=== PATIENT | male | born 1965 | race African-American/Black ===

== ENCOUNTER 2022-09-16 05:22 | Emergency (ER) | payer SELFPAY ==
[2022-09-16 05:53] VITALS: BMI 26.6
[2022-09-16] MEDS ORDERED: ACETAMINOPHEN 325 MG TABLET (FP) PO ONE (06:40)
[2022-09-16] MEDS ORDERED: LIDOCAINE 5% TOPICAL PATCH TP ONE (06:40)
[2022-09-16] MEDS ORDERED: ACETAMINOPHEN 325 MG TABLET (FP) ONE (06:49)
[2022-09-16] MEDS ORDERED: LIDOCAINE 5% TOPICAL PATCH ONE ×2 (06:50→08:41)
[2022-09-16 08:40] VITALS: RESP 18; TEMP 98.1
[2022-09-16 13:32] LABS: INR 1.12 (0.83-1.09)
[2022-09-16 13:33] LABS: BASO % 0.9 % (0-2.0); EOS % 2.7 % (0-4.5); HEMATOCRIT 36.3 % (35.4-49); LYMPH % 14.4 % (8-40); MCH 27.5 pg (25.7-33.7); MEAN CELL VOLUME 83.3 fl (80-96); MEAN PLT VOLUME 8.7 fl (7.5-11.1); MONO % 4.2 % (3.8-10.2); NEUT % 77.8 % (42.8-82.8); PLATELET COUNT 356 10^3/uL (134-434); RBC 4.36 M/mm3 (4.00-5.60); RDW 14.3 % (11.9-15.9); WHITE BLOOD COUNT 10.5 K/mm3 (4.0-10.0)
[2022-09-16 13:34] LABS: ACTIVATED PTT 28.5 SECONDS (25.2-36.5)
[2022-09-16 13:36] LABS: CALCIUM 9.1 mg/dL (8.5-10.1)
[2022-09-16 13:37] LABS: ALBUMIN 3.6 g/dl (3.4-5.0); BLOOD UREA NITROGEN 16.1 mg/dL (7-18)
[2022-09-16 13:41] LABS: BILIRUBIN,TOTAL 0.4 mg/dL (0.2-1)
[2022-09-16 13:58] LABS: ANISOCYTOSIS 0; HELMET CELLS 0; HOWELL-JOLLY BODIES 0; MACROCYTOSIS 0; OVALOCYTE 0; ROULEAU 0; SICKELED CELLS 0; TARGET CELLS 0; TEAR DROP CELLS 0; TOXIC GRANULATION 0
[2022-09-16 14:32] VITALS: BP 147/80; PULSE 72
[2022-09-16] MEDS ORDERED: LIDOCAINE PATCH REMOVAL MC ONE (22:00)
== END 2022-09-16 15:00 | disposition home or self-care (01) ==
LOC: JER 05:22
DX: M54.50 Low back pain, unspecified (principal)
CPT/HCPCS: 36415; 72100-TC-FY; 80053; 83880; 84484; 85025; 85610; 85730; 99284-25

== ENCOUNTER 2022-12-19 07:33 | Inpatient (IN) | payer OTHER ==
[2022-12-19] MEDS ORDERED: SODIUM CHLORIDE 1,000 ML IV STA (08:21)
[2022-12-19] MEDS ORDERED: ACETAMINOPHEN 1000 MG/100 ML BAG IVPB ONE ×2 (08:51→18:36)
[2022-12-19] MEDS ORDERED: ACETAMINOPHEN INJECTION 100 ML IVPB ONE ×2 (08:57→19:39)
[2022-12-19 09:56] LABS: HEMATOCRIT 41.3 % (35.4-49); HEMOGLOBIN 13.4 GM/dL (11.7-16.9); MCH 27.4 pg (25.7-33.7); MCHC 32.5 g/dl (32.0-35.9); MEAN CELL VOLUME 84.2 fl (80-96); MEAN PLT VOLUME 8.1 fl (7.5-11.1); PLATELET COUNT 222 10^3/uL (134-434); RDW 14.6 % (11.9-15.9); WHITE BLOOD COUNT 6.2 K/mm3 (4.0-10.0)
[2022-12-19] MEDS ORDERED: ONDANSETRON 4 MG/2 ML VIAL IVPUSH ONE (10:07)
[2022-12-19] MEDS ORDERED: morphine CARPU-JECT 4 MG/1 ML DISP.SYRIN IVPUSH ONE (10:07)
[2022-12-19] MEDS ORDERED: ONDANSETRON 4 MG/2 ML VIAL ONE (10:14)
[2022-12-19] MEDS ORDERED: morphine SULFATE 4 MG/ML VIAL ONE (10:14)
[2022-12-19 10:15] LABS: POTASSIUM 3.8 mmol/L (3.5-5.1)
[2022-12-19 10:18] LABS: CALCIUM 9.5 mg/dL (8.5-10.1)
[2022-12-19 10:19] LABS: BLOOD UREA NITROGEN 14.6 mg/dL (7-18)
[2022-12-19 10:22] LABS: CREATININE 0.9 mg/dL (0.55-1.3)
[2022-12-19 10:23] LABS: BILIRUBIN,TOTAL 1.3 mg/dL (0.2-1); TOT PROT 6.9 g/dl (6.4-8.2)
[2022-12-19 10:26] LABS: N-TERMINAL BNP 78.9 pg/ml (5-125)
[2022-12-19] MEDS ORDERED: METOCLOPRAMIDE HCL INJECTION 10 MG/2 ML VIAL IVPUSH ONE (10:41)
[2022-12-19] MEDS ORDERED: METOCLOPRAMIDE HCL INJECTION 10 MG/2 ML VIAL ONE (10:47)
[2022-12-19] MEDS ORDERED: KETAMINE HCL 200 MG/20 ML VIAL IVPUSH ONE (15:02)
[2022-12-19] MEDS ORDERED: HALOPERIDOL LACTATE 5 MG/ML IM ONE ×2 (15:28→15:29)
[2022-12-19] MEDS ORDERED: LORazepam 2 MG/ML SDV VIAL IM ONE (15:28)
[2022-12-19] MEDS ORDERED: MIDAZOLAM HCL 5 MG/1 ML Single Dose Vial ONE ×2 (16:14→17:09)
[2022-12-19] MEDS ORDERED: MIDAZOLAM HCL 2 MG/2 ML SINGLE DOSE VIAL IM ONE (16:28)
[2022-12-19] MEDS ORDERED: MIDAZOLAM HCL 5 MG/1 ML Single Dose Vial IVPUSH ONE ×2 (17:13→17:15)
[2022-12-19 17:46] LABS: VENOUS BASE EXCESS -1.6 mmol/L (-2-2); VENOUS O2 SATURATION 81.3 % (70-80); VENOUS PCO2 36.1 mmHg (38-52); VENOUS PH 7.412 (7.310-7.410)
[2022-12-19] MEDS ORDERED: MIDAZOLAM HCL 2 MG/2 ML SINGLE DOSE VIAL ONE (17:52)
[2022-12-19] MEDS ORDERED: MIDAZOLAM HCL 2 MG/2 ML SINGLE DOSE VIAL IVPUSH ONE (18:34)
[2022-12-19] MEDS ORDERED: RAPID SEQUENCE INTUBATION KIT NR ONE (18:51)
[2022-12-19] MEDS ORDERED: MIDAZOLAM IN 0.9 % SOD.CHLORID 1 MG/1 ML PLAST..BAG ONE (18:51)
[2022-12-19] MEDS ORDERED: PROPOFOL 200 MG/20 ML VIAL IVPUSH ONE ×2 (19:17→19:18)
[2022-12-19 19:18] LABS: HIV INTERPRETATION NEGATIVE (NEGATIVE)
[2022-12-19] MEDS ORDERED: SUCCINYLCHOLINE CHLORIDE 200 MG/10 ML VIAL IVPUSH ONE ×2 (19:18→19:32)
[2022-12-19] MEDS: MIDAZOLAM IN 0.9 % SOD.CHLORID 100 MG/100 ML PLAST..BAG IVPB SCH (19:19)
[2022-12-19] MEDS ORDERED: PROPOFOL 1,000,000 MCG/100 ML VIAL ONE (19:24)
[2022-12-19] MEDS: PROPOFOL 1,000,000 MCG/100 ML VIAL IVPB SCH ×2 (19:31→23:20)
[2022-12-19] MEDS ORDERED: ETOMIDATE 40 MG/20 ML VIAL IVPUSH ONE (19:32)
[2022-12-19] MEDS ORDERED: FENTANYL NS IVPB 500 MCG/100 ML BAG IVPB ONE (19:51)
[2022-12-19 19:55] LABS: PH,URINE 7.5 (5.0-8.0); URINE APPEARANCE CLEAR; URINE BILIRUBIN NEGATIVE (NEGATIVE); URINE COLOR YELLOW; URINE GLUCOSE (UA) NEGATIVE (NEGATIVE); URINE KETONE TRACE (NEGATIVE); URINE LEUK ESTERASE NEGATIVE (NEGATIVE); URINE NITRITE NEGATIVE (NEGATIVE); URINE PROTEIN NEGATIVE (NEGATIVE)
[2022-12-19] MEDS: FENTANYL NS IVPB 500 MCG/100 ML BAG IVPB SCH (20:04)
[2022-12-19 20:44] LABS: METHADONE, UR NEGATIVE (NEGATIVE)
[2022-12-19 20:45] LABS: URINE BARBITURATES NEGATIVE (NEGATIVE)
[2022-12-19 21:14] LABS: COCAINE, UR POSITIVE (NEGATIVE); OPIATES, URI POSITIVE (NEGATIVE); PHENCYCLIDINE,URINE POSITIVE (NEGATIVE); URINE AMPHETAMINES NEGATIVE (NEGATIVE); URINE BENZODIAZEPINES POSITIVE (NEGATIVE)
[2022-12-19] MEDS: HEPARIN NA (PORCINE) 5,000 UNITS/ML 1ML VIAL SQ SCH (23:21)
[2022-12-20] MEDS ORDERED: AZITHROMYCIN IVPB 500 MG/250 ML BAG IVPB SCH (00:20)
[2022-12-20] MEDS: CEFTRIAXONE 1 GM in DEXTROSE 5%-WATER - 50 ML IVPB SCH ×2 (00:46→10:03)
[2022-12-20] MEDS: MIDAZOLAM IN 0.9 % SOD.CHLORID 100 MG/100 ML PLAST..BAG IVPB SCH ×3 (02:31→22:02)
[2022-12-20] MEDS: FENTANYL NS IVPB 500 MCG/100 ML BAG IVPB SCH ×4 (02:32→22:06)
[2022-12-20] MEDS: MUPIROCIN 2% TOPICAL OINTMENT FOR DECOLONIZATION NS SCH ×3 (04:43→22:06)
[2022-12-20] MEDS: PROPOFOL 1,000,000 MCG/100 ML VIAL IVPB SCH ×4 (05:30→19:44)
[2022-12-20] MEDS: HEPARIN NA (PORCINE) 5,000 UNITS/ML 1ML VIAL SQ SCH ×3 (05:33→22:06)
[2022-12-20 06:34] LABS: ARTERIAL BLD GAS O2 SATURATION 98.6 % (95-98); ARTERIAL BLOOD GAS BASE EXCESS 1.4 mmol/L (-2-2); ARTERIAL BLOOD GAS PO2 119.9 mmHg (80-100); ARTERIAL BLOOD GAS pH 7.471 (7.350-7.450)
[2022-12-20 06:35] LABS: VENT MODE A/C; VENT RATE 14
[2022-12-20 08:20] LABS: BASO % 0.3 % (0-2.0); HEMATOCRIT 38.5 % (35.4-49); HEMOGLOBIN 12.4 GM/dL (11.7-16.9); MCH 27.6 pg (25.7-33.7); MCHC 32.1 g/dl (32.0-35.9); MEAN CELL VOLUME 85.9 fl (80-96); MEAN PLT VOLUME 9.1 fl (7.5-11.1); MONO % 3.8 % (3.8-10.2); NEUT % 86.9 % (42.8-82.8); PLATELET COUNT 210 10^3/uL (134-434); RBC 4.48 M/mm3 (4.00-5.60); WHITE BLOOD COUNT 16.6 K/mm3 (4.0-10.0)
[2022-12-20 08:25] LABS: INR 1.21 (0.83-1.09)
[2022-12-20 08:51] LABS: POTASSIUM 3.3 mmol/L (3.5-5.1)
[2022-12-20 09:01] LABS: BLOOD UREA NITROGEN 13.5 mg/dL (7-18); CALCIUM 8.8 mg/dL (8.5-10.1); MAGNESIUM 1.9 mg/dL (1.8-2.4)
[2022-12-20 09:03] LABS: PHOSPHOROUS 3.6 mg/dL (2.5-4.9)
[2022-12-20 09:04] LABS: CREATININE 0.7 mg/dL (0.55-1.3)
[2022-12-20 09:05] LABS: BILIRUBIN,TOTAL 0.8 mg/dL (0.2-1); TOT PROT 5.6 g/dl (6.4-8.2)
[2022-12-20 09:10] LABS: ALBUMIN 3.2 g/dl (3.4-5.0)
[2022-12-20] MEDS ORDERED: AZITHROMYCIN IVPB 500 MG in DEXTROSE 5%-WATER - 250 ML IVPB SCH (10:00)
[2022-12-20] MEDS: CHLORHEXIDINE GLUCONATE 4% CLEANSER FOR DECOLONIZATION TP SCH (22:06)
[2022-12-21] MEDS: PROPOFOL 1,000,000 MCG/100 ML VIAL IVPB SCH ×4 (01:16→21:02)
[2022-12-21] MEDS: FENTANYL NS IVPB 500 MCG/100 ML BAG IVPB SCH ×4 (01:17→21:03)
[2022-12-21] MEDS: HEPARIN NA (PORCINE) 5,000 UNITS/ML 1ML VIAL SQ SCH ×3 (05:22→21:02)
[2022-12-21 07:17] LABS: BASO % 0.2 % (0-2.0); HEMATOCRIT 44.1 % (35.4-49); LYMPH % 6.2 % (8-40); MCH 27.4 pg (25.7-33.7); MCHC 31.8 g/dl (32.0-35.9); MEAN PLT VOLUME 9.4 fl (7.5-11.1); NEUT % 89.6 % (42.8-82.8); PLATELET COUNT 164 10^3/uL (134-434); RBC 5.12 M/mm3 (4.00-5.60); RDW 14.4 % (11.9-15.9); WHITE BLOOD COUNT 17.5 K/mm3 (4.0-10.0)
[2022-12-21 07:37] LABS: POTASSIUM 3.7 mmol/L (3.5-5.1)
[2022-12-21 07:45] LABS: ALBUMIN 3.1 g/dl (3.4-5.0); BLOOD UREA NITROGEN 16.2 mg/dL (7-18); CALCIUM 9.5 mg/dL (8.5-10.1); MAGNESIUM 2.1 mg/dL (1.8-2.4)
[2022-12-21 07:48] LABS: CREATININE 0.9 mg/dL (0.55-1.3); PHOSPHOROUS 4.3 mg/dL (2.5-4.9)
[2022-12-21 07:49] LABS: BILIRUBIN,TOTAL 0.4 mg/dL (0.2-1); TOT PROT 5.7 g/dl (6.4-8.2)
[2022-12-21] MEDS ORDERED: POTASSIUM CHLORIDE ORAL LIQUID 20 MEQ/15 ML PO ONE (08:54)
[2022-12-21] MEDS ORDERED: AMPICILLIN NA/SULBACTAM NA 3 GM in SODIUM CHLORIDE 100 ML IVPB SCH ×2 (09:00→09:22)
[2022-12-21] MEDS: LACTATED RINGERS SOLUTION 1,000 ML/1,000 ML INFUS.BAG IV SCH ×2 (09:48→21:31)
[2022-12-21] MEDS: DEXMEDETOMIDINE PREMIX 400 MCG/100 ML BAG IVPB SCH (09:50)
[2022-12-21] MEDS: DOCUSATE NA 100 MG/10 ML UNIT-DOSE CUPS PO SCH (09:50)
[2022-12-21] MEDS: MUPIROCIN 2% TOPICAL OINTMENT FOR DECOLONIZATION NS SCH ×2 (10:07→21:03)
[2022-12-21] MEDS: PIPERACILLIN/TAZOB 3.375 GM 3.375 GM in DEXTROSE 5%-WATER - 50 ML IVPB SCH ×2 (14:20→17:11)
[2022-12-21] MEDS: MIDAZOLAM IN 0.9 % SOD.CHLORID 100 MG/100 ML PLAST..BAG IVPB SCH (21:02)
[2022-12-21] MEDS: CHLORHEXIDINE GLUCONATE 4% CLEANSER FOR DECOLONIZATION TP SCH (21:03)
[2022-12-21] MEDS: SENNOSIDES 8.8 MG/5 ML SYRUP NGT SCH (22:07)
[2022-12-22] MEDS: PROPOFOL 1,000,000 MCG/100 ML VIAL IVPB SCH ×2 (01:38→21:15)
[2022-12-22] MEDS: PIPERACILLIN/TAZOB 3.375 GM 3.375 GM in DEXTROSE 5%-WATER - 50 ML IVPB SCH ×3 (01:38→17:19)
[2022-12-22] MEDS: FENTANYL NS IVPB 500 MCG/100 ML BAG IVPB SCH ×2 (01:39→21:20)
[2022-12-22] MEDS: HEPARIN NA (PORCINE) 5,000 UNITS/ML 1ML VIAL SQ SCH ×3 (05:38→22:12)
[2022-12-22 08:01] LABS: POTASSIUM 4.1 mmol/L (3.5-5.1)
[2022-12-22 08:04] LABS: BASO % 0.3 % (0-2.0); BLOOD UREA NITROGEN 14.6 mg/dL (7-18); EOS % 0.1 % (0-4.5); HEMOGLOBIN 15.7 GM/dL (11.7-16.9); LYMPH % 8.5 % (8-40); MCH 27.8 pg (25.7-33.7); MCHC 31.9 g/dl (32.0-35.9); MEAN PLT VOLUME 9.2 fl (7.5-11.1); MONO % 4.4 % (3.8-10.2); NEUT % 86.7 % (42.8-82.8); PLATELET COUNT 166 10^3/uL (134-434); RBC 5.64 M/mm3 (4.00-5.60); RDW 14.6 % (11.9-15.9); WHITE BLOOD COUNT 14.9 K/mm3 (4.0-10.0)
[2022-12-22 08:07] LABS: CREATININE 0.8 mg/dL (0.55-1.3); PHOSPHOROUS 3.8 mg/dL (2.5-4.9)
[2022-12-22 08:40] LABS: CALCIUM 8.9 mg/dL (8.5-10.1)
[2022-12-22] MEDS: DEXMEDETOMIDINE PREMIX 400 MCG/100 ML BAG IVPB SCH (09:10)
[2022-12-22] MEDS: MUPIROCIN 2% TOPICAL OINTMENT FOR DECOLONIZATION NS SCH ×2 (09:15→22:12)
[2022-12-22] MEDS: DOCUSATE NA 100 MG/10 ML UNIT-DOSE CUPS PO SCH (09:15)
[2022-12-22] MEDS: LACTATED RINGERS SOLUTION 1,000 ML/1,000 ML INFUS.BAG IV SCH (09:15)
[2022-12-22] MEDS ORDERED: FUROSEMIDE 40 MG/4 ML INJECTABLE VIAL IVPUSH ONE (10:11)
[2022-12-22] MEDS ORDERED: DEXTROSE 50%-WATER - 25 GM/50 ML VIAL IVPUSH ONE (10:11)
[2022-12-22] MEDS ORDERED: DEXTROSE 50%-WATER 25 GM/50 ML DISP.SYRIN ONE (10:26)
[2022-12-22] MEDS: MIDAZOLAM IN 0.9 % SOD.CHLORID 100 MG/100 ML PLAST..BAG IVPB SCH (21:14)
[2022-12-22] MEDS: SENNOSIDES 8.8 MG/5 ML SYRUP NGT SCH (22:12)
[2022-12-22] MEDS: CHLORHEXIDINE GLUCONATE 4% CLEANSER FOR DECOLONIZATION TP SCH (22:12)
[2022-12-23] MEDS: PIPERACILLIN/TAZOB 3.375 GM 3.375 GM in DEXTROSE 5%-WATER - 50 ML IVPB SCH ×3 (01:20→17:45)
[2022-12-23] MEDS: HEPARIN NA (PORCINE) 5,000 UNITS/ML 1ML VIAL SQ SCH ×3 (05:54→22:04)
[2022-12-23 07:09] LABS: BASO % 0.3 % (0-2.0); EOS % 0.5 % (0-4.5); HEMATOCRIT 43.7 % (35.4-49); HEMOGLOBIN 14.1 GM/dL (11.7-16.9); LYMPH % 10.1 % (8-40); MCH 27.6 pg (25.7-33.7); MCHC 32.3 g/dl (32.0-35.9); MEAN CELL VOLUME 85.4 fl (80-96); MONO % 4.8 % (3.8-10.2); NEUT % 84.3 % (42.8-82.8); PLATELET COUNT 167 10^3/uL (134-434); RBC 5.12 M/mm3 (4.00-5.60); RDW 14.4 % (11.9-15.9)
[2022-12-23 07:32] LABS: ALBUMIN 2.8 g/dl (3.4-5.0); BLOOD UREA NITROGEN 23.7 mg/dL (7-18); MAGNESIUM 1.8 mg/dL (1.8-2.4)
[2022-12-23 07:35] LABS: CREATININE 0.9 mg/dL (0.55-1.3); PHOSPHOROUS 4.8 mg/dL (2.5-4.9)
[2022-12-23 07:37] LABS: BILIRUBIN,TOTAL 0.7 mg/dL (0.2-1); TOT PROT 5.7 g/dl (6.4-8.2)
[2022-12-23] MEDS: DOCUSATE NA 100 MG/10 ML UNIT-DOSE CUPS PO SCH (10:03)
[2022-12-23] MEDS: MUPIROCIN 2% TOPICAL OINTMENT FOR DECOLONIZATION NS SCH ×2 (10:03→22:04)
[2022-12-23] MEDS: LISINOPRIL 10 MG TABLET PO SCH ×2 (10:03→10:24)
[2022-12-23] MEDS: MAG HYDROX/AL HYDROX/SIMETH -MYLANTA- ORAL SUSPENSION PO SCH ×2 (14:14→22:07)
[2022-12-23] MEDS ORDERED: LORazepam 2 MG/ML SDV VIAL IVPUSH ONE (15:36)
[2022-12-23] MEDS: DEXMEDETOMIDINE PREMIX 400 MCG/100 ML BAG IVPB SCH (15:54)
[2022-12-23] MEDS ORDERED: ALBUTEROL SO4 2.5/IPRATROPIUM 0.5 INH SOL 3 ML VIAL.NEB. NEB PRN (17:21)
[2022-12-23] MEDS ORDERED: hydrOXYzine PAMOATE 50 MG CAPSULE (FP) PO PRN (17:25)
[2022-12-23] MEDS: LOPERAMIDE HCL 2 MG CAPSULE PO PRN (17:45)
[2022-12-23] MEDS: ACETAMINOPHEN 1000 MG/100 ML BAG IVPB PRN (17:45)
[2022-12-23] MEDS: LOSARTAN 50MG/HCTZ 12.5MG 1 TAB PO SCH (18:43)
[2022-12-23] MEDS: CHLORHEXIDINE GLUCONATE 4% CLEANSER FOR DECOLONIZATION TP SCH (22:04)
[2022-12-24] MEDS: ACETAMINOPHEN 1000 MG/100 ML BAG IVPB PRN ×2 (00:51→17:16)
[2022-12-24] MEDS: PIPERACILLIN/TAZOB 3.375 GM 3.375 GM in DEXTROSE 5%-WATER - 50 ML IVPB SCH ×3 (01:34→17:15)
[2022-12-24] MEDS ORDERED: PIPERACILLIN/TAZOB 3.375 GM 3.375 GM in DEXTROSE 5%-WATER - 50 ML IVPB SCH (02:00)
[2022-12-24] MEDS: ONDANSETRON 4 MG/2 ML VIAL IVPUSH PRN ×2 (03:18→21:50)
[2022-12-24] MEDS: HEPARIN NA (PORCINE) 5,000 UNITS/ML 1ML VIAL SQ SCH ×3 (05:26→21:50)
[2022-12-24] MEDS: LOPERAMIDE HCL 2 MG CAPSULE PO PRN ×2 (05:28→21:50)
[2022-12-24] MEDS: MAG HYDROX/AL HYDROX/SIMETH -MYLANTA- ORAL SUSPENSION PO SCH ×3 (06:01→21:58)
[2022-12-24] MEDS: LISINOPRIL 10 MG TABLET PO SCH (09:31)
[2022-12-24 09:45] LABS: HEMATOCRIT 41.2 % (35.4-49); HEMOGLOBIN 13.1 GM/dL (11.7-16.9); MCH 27.3 pg (25.7-33.7); MCHC 31.9 g/dl (32.0-35.9); MEAN CELL VOLUME 85.8 fl (80-96); MEAN PLT VOLUME 9.8 fl (7.5-11.1); PLATELET COUNT 177 10^3/uL (134-434); RDW 14.4 % (11.9-15.9); WHITE BLOOD COUNT 12.5 K/mm3 (4.0-10.0)
[2022-12-24 09:52] LABS: CALCIUM 8.8 mg/dL (8.5-10.1)
[2022-12-24 09:53] LABS: ALBUMIN 3.3 g/dl (3.4-5.0); BLOOD UREA NITROGEN 20.3 mg/dL (7-18)
[2022-12-24 09:56] LABS: CREATININE 0.7 mg/dL (0.55-1.3)
[2022-12-24 09:57] LABS: BILIRUBIN,TOTAL 0.8 mg/dL (0.2-1)
[2022-12-24 09:58] LABS: TOT PROT 6.3 g/dl (6.4-8.2)
[2022-12-24] MEDS ORDERED: LORazepam 1 MG TABLET PO PRN (10:26)
[2022-12-24] MEDS: DOCUSATE NA 100 MG/10 ML UNIT-DOSE CUPS PO SCH (10:32)
[2022-12-24] MEDS: MUPIROCIN 2% TOPICAL OINTMENT FOR DECOLONIZATION NS SCH ×2 (11:15→21:57)
[2022-12-24] MEDS: LOSARTAN 50MG/HCTZ 12.5MG 1 TAB PO SCH (11:15)
[2022-12-24 14:22] VITALS: BMI 21.9
[2022-12-24] MEDS ORDERED: hydrALAZINE HCL 20 MG/ML VIAL IVPUSH ONE (19:37)
[2022-12-24] MEDS: BANATROL PLUS POWDER PACKET PO SCH (21:57)
[2022-12-24] MEDS: CHLORHEXIDINE GLUCONATE 4% CLEANSER FOR DECOLONIZATION TP SCH (21:58)
[2022-12-25] MEDS: PIPERACILLIN/TAZOB 3.375 GM 3.375 GM in DEXTROSE 5%-WATER - 50 ML IVPB SCH ×3 (01:02→17:36)
[2022-12-25] MEDS ORDERED: QUEtiapine FUMARATE 25 MG TABLET PO ONE (02:01)
[2022-12-25] MEDS: MAG HYDROX/AL HYDROX/SIMETH -MYLANTA- ORAL SUSPENSION PO SCH ×3 (05:03→22:39)
[2022-12-25] MEDS: BANATROL PLUS POWDER PACKET PO SCH ×3 (05:03→22:39)
[2022-12-25] MEDS: HEPARIN NA (PORCINE) 5,000 UNITS/ML 1ML VIAL SQ SCH ×4 (05:04→22:44)
[2022-12-25 07:26] VITALS: RESP 18
[2022-12-25] MEDS: LISINOPRIL 10 MG TABLET PO SCH (11:02)
[2022-12-25] MEDS: LOSARTAN 50MG/HCTZ 12.5MG 1 TAB PO SCH (11:02)
[2022-12-25] MEDS: DOCUSATE NA 100 MG/10 ML UNIT-DOSE CUPS PO SCH (11:15)
[2022-12-25] MEDS ORDERED: POTASSIUM CHLORIDE TABS 20 MEQ TABLET.ER (FP) PO ONE (11:15)
[2022-12-25 13:26] LABS: BASO % 0.3 % (0-2.0); EOS % 0.1 % (0-4.5); HEMATOCRIT 45.2 % (35.4-49); HEMOGLOBIN 14.7 GM/dL (11.7-16.9); LYMPH % 13.7 % (8-40); MCH 27.3 pg (25.7-33.7); MCHC 32.6 g/dl (32.0-35.9); MEAN CELL VOLUME 83.7 fl (80-96); MEAN PLT VOLUME 8.4 fl (7.5-11.1); MONO % 5.4 % (3.8-10.2); NEUT % 80.5 % (42.8-82.8); PLATELET COUNT 227 10^3/uL (134-434); RDW 14.4 % (11.9-15.9); WHITE BLOOD COUNT 11.6 K/mm3 (4.0-10.0)
[2022-12-25 13:58] LABS: POTASSIUM 3.6 mmol/L (3.5-5.1)
[2022-12-25 14:00] LABS: CALCIUM 9.7 mg/dL (8.5-10.1)
[2022-12-25 14:01] LABS: ALBUMIN 3.6 g/dl (3.4-5.0)
[2022-12-25 14:03] LABS: CREATININE 0.8 mg/dL (0.55-1.3)
[2022-12-25 14:05] LABS: BILIRUBIN,TOTAL 0.8 mg/dL (0.2-1); TOT PROT 7.3 g/dl (6.4-8.2)
[2022-12-25 14:06] LABS: BLOOD UREA NITROGEN 13.4 mg/dL (7-18)
[2022-12-25] MEDS: CHLORHEXIDINE GLUCONATE 4% CLEANSER FOR DECOLONIZATION TP SCH (22:45)
[2022-12-26] MEDS: PIPERACILLIN/TAZOB 3.375 GM 3.375 GM in DEXTROSE 5%-WATER - 50 ML IVPB SCH ×2 (01:09→11:36)
[2022-12-26] MEDS: BANATROL PLUS POWDER PACKET PO SCH ×2 (05:30→13:38)
[2022-12-26] MEDS: HEPARIN NA (PORCINE) 5,000 UNITS/ML 1ML VIAL SQ SCH ×2 (06:08→13:38)
[2022-12-26] MEDS: MAG HYDROX/AL HYDROX/SIMETH -MYLANTA- ORAL SUSPENSION PO SCH ×2 (06:08→13:38)
[2022-12-26 10:02] LABS: POTASSIUM 3.5 mmol/L (3.5-5.1)
[2022-12-26 10:07] LABS: BLOOD UREA NITROGEN 22.5 mg/dL (7-18); CALCIUM 9.4 mg/dL (8.5-10.1)
[2022-12-26 10:08] LABS: ALBUMIN 3.2 g/dl (3.4-5.0)
[2022-12-26 10:10] LABS: CREATININE 0.9 mg/dL (0.55-1.3)
[2022-12-26 10:11] LABS: BILIRUBIN,TOTAL 0.4 mg/dL (0.2-1); TOT PROT 6.3 g/dl (6.4-8.2)
[2022-12-26 10:28] LABS: BASO % 0.4 % (0-2.0); EOS % 0.4 % (0-4.5); HEMATOCRIT 41.9 % (35.4-49); HEMOGLOBIN 13.5 GM/dL (11.7-16.9); LYMPH % 11.6 % (8-40); MCH 27.4 pg (25.7-33.7); MCHC 32.1 g/dl (32.0-35.9); MEAN CELL VOLUME 85.5 fl (80-96); MEAN PLT VOLUME 9.2 fl (7.5-11.1); MONO % 7.1 % (3.8-10.2); NEUT % 80.5 % (42.8-82.8); PLATELET COUNT 222 10^3/uL (134-434); RDW 14.3 % (11.9-15.9); WHITE BLOOD COUNT 11.8 K/mm3 (4.0-10.0)
[2022-12-26] MEDS: LOSARTAN 50MG/HCTZ 12.5MG 1 TAB PO SCH (11:35)
[2022-12-26] MEDS: DOCUSATE NA 100 MG/10 ML UNIT-DOSE CUPS PO SCH (11:35)
[2022-12-26] MEDS: LISINOPRIL 10 MG TABLET PO SCH (11:36)
[2022-12-26 12:20] VITALS: BP 139/84; PULSE 76; TEMP 98.4
[2022-12-26] MEDS ORDERED: AMOX TR/POT CLAV 875MG/125MG TABLETS (FP) PO SCH (17:30)
== END 2022-12-26 15:51 | disposition home or self-care (01) | DRG 812 ==
LOC: JER 07:33 → JERBED 19:48 → JICU 22:45 → J5S 12-24 00:42
PROVIDERS: ADMIT Internal Medicine Pulmonary Disease; ATTEND Internal Medicine
PROC: 5A1945Z Respiratory Ventilation, 24-96 Consecutive Hours (ICD-10-PCS; principal; 2022-12-19)
PROC: 0BH17EZ Insertion of Endotracheal Airway into Trachea, Via Natural or Artificial Opening (ICD-10-PCS; 2022-12-19)
PROC: 0D9670Z Drainage of Stomach with Drainage Device, Via Natural or Artificial Opening (ICD-10-PCS; 2022-12-19)
DX: T40.601A Poisoning by unspecified narcotics, accidental (unintentional), initial encounter (principal); J69.0 Pneumonitis due to inhalation of food and vomit; J96.01 Acute respiratory failure with hypoxia; F10.129 Alcohol abuse with intoxication, unspecified; F17.210 Nicotine dependence, cigarettes, uncomplicated; F19.10 Other psychoactive substance abuse, uncomplicated; I10 Essential (primary) hypertension; R41.0 Disorientation, unspecified; Y92.89 Other specified places as the place of occurrence of the external cause
CPT/HCPCS: 0241U-QW; 36415; 36600; 70450-TC; 71045-TC-FY; 72125-TC; 72131-TC; 72170-TC-FY; 73560-TC-LT-FY; 73560-TC-RT-FY; 80048; 80053; 80307; 81003; 82550; 82553; 82803; 82962; 83605; 83735; 83880; 84100; 85025; 85027; 85610; 86707; 86803; 87040; 87070; 87086; 87205; 87350; 87389; 93005; 93010; 94002; 97116-GP; 97161-GP; 99291; J1644